=== PATIENT | female | born 1945 | race Caucasian/White ===

== ENCOUNTER 2016-09-24 00:34 | Emergency (ER) | payer OTHER ==
--- NOTE | 2016-09-24 02:58 | ED NURSING NOTES ---
Clinical Report - Nurses [facility] [place] [address] 09/24/2016 0:36 [id number] Triage time 00:30 Sep 24 2016. Acuity: LEVEL 3. Chief Complaint: DIFFICULTY BREATHING and "ASTHMA ATTACK". ( RT called to bedside). SEPSIS SCREEN: Sepsis Screen: negative. Negative (no infection suspected/documented). DARRION COMA SCORE: Darrion Coma Scale: 15- eyes open spontaneously (4); best verbal response- oriented x 4 (5); best motor response- obeys commands (6). --00:42 Janis Martinez 00:38 09/24/16. BP: 158/78. HR: 81. RR: 24. O2 saturation: 93% on room air. Temp: 98 F (oral). Pain level now: 0/10. --00:42 Janis Martinez. Weight: 72.5 kg stated. Height/Length: 65 inches Per Patient. BMI: 26.6. --00:40 Janis Martinez. Medications Albuterol Sulfate Oral. --00:39 Janis Martinez Primatene Asthma Oral. --00:40 Janis Martinez Decongestant Oral. --00:40 Janis Martinez. Medication/allergy information source: the patient. --00:42 Janis Martinez. Allergies Penicillin. --00:40 Janis Martinez. History Arrived by private vehicle. Historian: patient. Accompanied by family. Primary physician (From out of state). This started last night. ( Patient reports she began having shortness of breath last night. She reports asthma and states she has been using her medications without relief. Family reports patient may be coughing up blood. Family reports patient has been hiding that from them.). She has had a cough and wheezing. PAST MEDICAL HX: Immunizations: up-to-date. The patient is post-menopausal. SOCIAL HX: Heavy tobacco smoker- 1 pack per day. No alcohol use or drug use. No infectious disease exposure. ABUSE ASSESSMENT: No report of abuse. FALL RISK ASSESSMENT: Fall risk assessment completed. No fall risk identified. NUTRITIONAL RISK ASSESSMENT: The nutritional risk assessment revealed no deficiencies. FUNCTIONAL ASSESSMENT: Functional assessment: no impairments noted. LEARNING NEEDS ASSESSMENT: The learning needs assessment revealed no barriers. SKIN INTEGRITY ASSESSMENT: Skin integrity risk assessment completed. No skin integrity risk identified. --00:42 Janis Martinez. PROBLEMS: Asthma. --00:40 Janis Martinez. ADDITIONAL SURGERIES: Colostomy. --00:40 Janis Martinez. Interventions ID band on patient. To treatment room. --00:42 Janis Martinez. PHYSICAL ASSESSMENT GENERAL / NEURO / PSYCH: Alert. Oriented X 4. She appears uncomfortable. HEENT: Mucous membranes are pink. RESPIRATORY: Mild respiratory distress. The patient can speak in full sentences. Cough productive of moderate amounts of yellow sputum. Expiratory wheezes present; wheezes audible without auscultation. CVS: Normal sinus rhythm noted. SKIN: Skin is warm and dry. --00:42 Janis Martinez. NURSING PROGRESS NOTES Oxygen administered by nasal cannula at 2 liters. mushroom spawn maker, pulse oximeter and NIBP monitor placed on patient; monitor alarms on. Patient gowned. Head of bed elevated. Reassurance given to the patient and patient's family. Two patient identifiers checked. Call light placed in reach. Side rails up x 1. Bed placed in lowest position. Brakes of bed on. Patient ready for evaluation- chart flagged and ED physician notified. --00:43 Janis Martinez 01:15 09/24/16. BP: 132/71. HR: 82. RR: 20. O2 saturation: 100% on nasal cannula at 2 liters/minute. --01:28 Janis Martinez Reassessment after medication administered. Overall patient status- she states feels better. --01:28 Janis Martinez 01:43 09/24/2016 Site #1 started via IV in the left antecubital space with an 20g angiocath, with aseptic technique and good blood return; one attempt. Held. Saline lock flushed with 10 mL saline. --01:48 Janis Martinez 01:48 09/24/2016 SOLU-MEDROL (MethylPREDNISolone Sodium Succ) IVP 125 mg given over 2 minute(s) via site #1. Allergies verified and confirmed 5 rights. IV patency established. IV site checked: no pain, redness, or swelling. IV flushed thoroughly pre- and post-medication administration. IVP given by RN. --01:48 Janis Martinez ( RT at bedside). --01:50 Janis Martinez Patient transported to radiology by stretcher with tech. (01:59 Sep 24 2016). --01:59 Janis Martinez 02:24 09/24/16. BP: 135/80. HR: 79. RR: 20. O2 saturation: 93% on nasal cannula at 2 liters/minute. --02:26 Janis Martinez. DISPOSITION / DISCHARGE 03:09 09/24/16. BP: 140/79. HR: 83. RR: 20. O2 saturation: 94% on room air. Temp: 98 F (oral). Pain level now: 0/10. --03:12 Janis Martinez 03:07 09/24/2016 Site #1 removed upon discharge. Catheter intact. Bandaid applied. --03:12 Janis Martinez 03:12 09/24/16. Condition at departure: improved and stable. The goals identified in the patient's plan of care were met. No learning barriers present. Discharge instructions provided and reviewed with the patient and family. Reviewed medication(s) side effects, precautions, dosing and course information. Prescription(s) given to the patient. Reviewed turn, cough, and deep breath exercise instructions. Reviewed need for increased fluid intake. Patient verbalized understanding. Written instructions provided in Luxembourgish. ( Follow up with your doctor for next available appointment. Return if your symptoms do not improve with medications. Patient and family verbalized understanding and had no additional questions at this time.). The patient was discharged by the physician. She was discharged home and accompanied by family. She left the Emergency Department ambulatory and via private vehicle. Family member driving. FALL RISK ASSESSMENT: Fall risk assessment completed. No fall risk identified. --03:12 Janis Martinez. Locked/Released at 09/24/2016 3:13 by Janis Martinez,
--- NOTE | 2016-09-24 02:58 | ED CLINICAL REPORT ---
Clinical Report - Physicians/Mid Levels [facility] [address] [place] [address] 09/24/2016 0:36 [id number] Time Seen: 00:47. Arrived- By private vehicle. Historian- patient. HISTORY OF PRESENT ILLNESS Chief Complaint: DYSPNEA and HISTORY OF ASTHMA. This started yesterday and is still present. The dyspnea is described as moderate. The dyspnea is worsened by walking, exertion and cough (Nothing improves). The patient has had a moderate cough productive of scant amounts of white sputum. No fever, sweating episodes, chills or chest pain or discomfort. No calf pain, foot swelling, anxiety, dizziness or tingling. No numbness or palpitations. The patient has had wheezing and dyspnea on exertion. (Patient states she is here from [place], visiting family. She states that she began to feel short of breath last night and had a cough, but that tonight her symptoms got much worse. Patient denies recent illness. She states that prior to yesterday she was feeling fine. She denies any chest pain nausea, or abdominal pain. She does not have any heart problems that she knows of. No fevers.). Similar symptoms previously: Recent medical care: Not recently seen/assessed. REVIEW OF SYSTEMS The patient has not had weight loss. No muscle aches, eye irritation, sore throat, nasal discharge or sinus drainage. No nausea, vomiting, abdominal pain, diarrhea or black stools. No bloody stools, headache, fainting episodes, blurred vision or difficulty with urination. No skin rash, enlarged lymph nodes or joint pain. All systems otherwise negative, except as recorded above. PAST HISTORY Problems: Asthma. Additional Surgeries: Colostomy. Medications: Decongestant Oral. Primatene Asthma Oral. Albuterol Sulfate Oral. Allergies: Penicillin. SOCIAL HISTORY Smoker- current status unknown. ADDITIONAL NOTES The nursing notes have been reviewed. PHYSICAL EXAM Vital Signs: 09/24/2016 00:38 BP: 158/78. HR: 81. RR: 24. O2 saturation: 93%. Temp: 98 F. Pain level now: 0/10. Have been reviewed. Appearance: Alert. Patient in mild distress. Distress appears respiratory. Eyes: Pupils equal, round and reactive to light. Eyes normal inspection. ENT: Nose normal. Neck: Normal inspection. CVS: Normal heart rate and rhythm. Heart sounds normal. Pulses normal. Respiratory: Mild respiratory distress with accessory muscle use and tachypnea. Mildly prolonged expirations. Moderately decreased air movement diffusely over both lungs. Expiratory moderate bilateral wheezes diffusely. Moderate bilateral rhonchi present diffusely. Abdomen: Soft and nontender. Back: Normal inspection. No CVA tenderness. Skin: Skin warm and dry. Normal skin color. No rash. Normal skin turgor. Extremities: Extremities exhibit normal ROM. No lower extremity edema. Neuro: (Grossly intact.). LABS, X-RAYS, AND EKG Chest X-ray: No acute disease. Normal lung markings present. Normal heart size. Mediastinum normal. Great vessels normal. Soft tissues normal. No infiltrate. No fracture. No bony lesion present. Views: PA and lateral. Technique: good. The X-rays were independently viewed by me and interpreted contemporaneously by me. Prior films were not available for comparison. Pulse Oximetry: 09/24/2016 00:38 O2 saturation: 93%. (FIO2 - room air). Interpretation: normal. PROGRESS AND PROCEDURES Course of Care: patient was treated symptomatically with a DuoNeb initially, which did improve her symptoms. She was also given IV Solu-Medrol and a second DuoNeb, after she continued to have significant wheezing and rhonchi after the initial treatment. Patient was also worked up with a chest x-ray, which was unremarkable. On reevaluation patient was found to be feeling better, and stated she was ready for discharge. Patient and family counseled in person regarding the patient's stable condition, test results, diagnosis and need for follow-up. Concerns were addressed. Disposition: Discharged. Condition: stable and improved. CLINICAL IMPRESSION Mild persistent asthma with an acute exacerbation. No pneumonia. INSTRUCTIONS (Your chest x-ray looks good.). Warnings: GENERAL WARNINGS: Return or contact your physician immediately if your condition worsens or changes unexpectedly, if not improving as expected, or if other problems arise. Your Current Medications: CONTINUE TAKING THE FOLLOWING MEDICATIONS: Albuterol Sulfate Oral. Decongestant Oral. Primatene Asthma Oral. Prescription Medications: Prednisone 20 mg: take 3 orally every day for 5 days. Dispense sufficient quantity. No refills. Follow-up: Follow up with your doctor. Call for the next available appointment. Understanding of the discharge instructions verbalized by patient and family. (Electronically signed by Yessica Zurita MD 09/24/2016 3:17)
--- NOTE | 2016-09-24 02:58 | ED ORDER SUMMARY ---
..... Patient: FRENCH YOUNG OrderSheet [facility] VisitID: [id number] [address] [place] [address] 70y, F Registration Date/Time: 09/24/2016 ORDER SHEET Weight: 72.5 kg (stated) Allergies: Penicillin GENERAL ORDERS: Chest 2V Urgent (01:41 09/24/2016 Trinity BLANCO) (Ack 1:43 ALawrence ER Tech1) (2:00 GUnger) MEDICATION ORDERS: DuoNeb Neb Tx 1 unit dose (NOW) (00:48 09/24/2016 HSoule verbal order read back to Trinity BLANCO) (0:55 ASingh) DuoNeb Neb Tx 1 unit dose (NOW) (01:40 09/24/2016 Trinity BLANCO) (1:44 ASingh) IV FLUIDS: Solu-MEDROL IV 125 mg (NOW) (01:40 09/24/2016 Trinity BLANCO) (1:48 HSoule) IV Saline Lock (01:41 09/24/2016 Trinity BLANCO) (1:48 HSoule) ORDER SHEET NOTES: [Electronically signed by Janis Martinez (03:13 09/24/2016)] [Electronically signed by Yessica Zurita MD (03:17 09/24/2016)] [Electronically locked/signed by Janis Martinez (03:13 09/24/2016)]
--- NOTE | 2016-09-24 02:58 | ED ORDER SUMMARY ---
..... Patient: FRENCH YOUNG OrderSheet [facility] VisitID: [id number] [address] [place] [address] 70y, F Registration Date/Time: 09/24/2016 ORDER SHEET Weight: 72.5 kg (stated) Allergies: Penicillin GENERAL ORDERS: Chest 2V Urgent (01:41 09/24/2016 Trinity BLANCO) (Ack 1:43 ALawrence ER Tech1) (2:00 GUnger) MEDICATION ORDERS: DuoNeb Neb Tx 1 unit dose (NOW) (00:48 09/24/2016 HSoule verbal order read back to Trinity BLANCO) (0:55 ASingh) DuoNeb Neb Tx 1 unit dose (NOW) (01:40 09/24/2016 Trinity BLANCO) (1:44 ASingh) IV FLUIDS: Solu-MEDROL IV 125 mg (NOW) (01:40 09/24/2016 Trinity BLANCO) (1:48 HSoule) IV Saline Lock (01:41 09/24/2016 Trinity BLANCO) (1:48 HSoule) ORDER SHEET NOTES: [Electronically signed by Janis Martinez (03:13 09/24/2016)] [Electronically signed by Yessica Zurita MD (03:17 09/24/2016)] [Electronically locked/signed by Janis Martinez (03:13 09/24/2016)]
--- NOTE | 2016-09-24 03:17 | ED DISCHARGE INSTRUCTIONS ---
Patient: FRENCH YOUNG General Instructions [facility] VisitID: [id number] [place] [address] 70y, F Registration Date/Time: 09/24/2016 Mild persistent asthma with an acute exacerbation. No pneumonia. INSTRUCTIONS (Your chest x-ray looks good.). Warnings: GENERAL WARNINGS: Return or contact your physician immediately if your condition worsens or changes unexpectedly, if not improving as expected, or if other problems arise. Your Current Medications: CONTINUE TAKING THE FOLLOWING MEDICATIONS: Albuterol Sulfate Oral. Decongestant Oral. Primatene Asthma Oral. Prescription Medications: Prednisone 20 mg: take 3 orally every day for 5 days. Dispense sufficient quantity. No refills. Follow-up: Follow up with your doctor. Call for the next available appointment. Understanding of the discharge instructions verbalized by patient and family. ADDITIONAL INFORMATION Asthma [Adult] Asthma is a disease where the small air passages within the lung go into spasm and restrict the flow of air. Inflammation and swelling of the airways cause further restriction. During an acute asthma attack, these factors cause difficulty breathing, wheezing, cough and chest tightness. An asthma attack can be triggered by many things. Common triggers include the common cold, bronchitis, pneumonia, irritants such as smoke or pullutants in the air, emotional upset and heavy exercise. Inmany adults with asthma, allergies todust, mold, pollen and animal dander can cause an asthma attack. Skipping doses of daily asthma medicine can also bring on an asthma attack. Asthma can be controlled with proper medicines and decreased exposure to known allergens. Home Care: Take prescribed medicine exactly at the times advised. If you have a hand-held inhaler or aerosol breathing medicine, do not use it more than once every four hours, unless told to do so. (If you need this medicine more than every four hours, you may need to return to the Emergency Room.) If prescribed an antibiotic or prednisone, take all of the medicine even if you are feeling better after a few days. Do not smoke. Avoid being exposed to the smoke of others. Some persons with asthma have worsening of their symptoms when they take aspirin and non-steroidal medicines like ibuprofen (Motrin, Advil) and naproxen (Aleve, Naprosyn). Talk to your doctor if you think this may apply to you. Acetaminophen (Tylenol)should be safe to use. Follow Up with your doctor, or as advised by our staff. Always bring all of your current medicines with you for your doctor to see. If you do not already have one, talk to your doctor about developing a personalized "Asthma Action Plan." [NOTE: A pneumococcal vaccine and yearly flu shot (every fall) are recommended. Ask your doctor about this.] Get Prompt Medical Attention if any of the following occur: Increased wheezing or shortness of breath Need to use your inhalers more often than usual without relief Fever of 100.4F (38C) or higher, or as directed by your healthcare provider Coughing up lots of dark-colored or bloody sputum (mucus) Chest pain with each breath You do not start to improve within 24 hours Call 911 If Any Of The Following Occur : Trouble walking or talking because of shortness of breath If you use a peak flow meter andyou are still in the red zone (less than 50 percent) 15 minutes after using inhaler medication Lips or fingernails turning green or blue You have been given the following additional information: Asthma, Acute (Adult) (Electronically signed by Yessica Zurita MD 09/24/2016 3:17)
--- NOTE | 2016-09-24 03:17 | ED MAR SUMMARY ---
..... Medication Administration Record [facility] [address] [place] [address] Patient: FRENCH YOUNG Visit ID: [id number] 70y, F Weight: 72.5 kg Height/Length: 65 in BMI: 26.6 ALLERGIES: Penicillin Given 00:40 09/24/2016 Félix Rosario, Medication Administered: DUONEB [NEB TX] (IPRATROPIUM-ALBUTEROL), Dose: 1 unit dose Nebulizer Neb TX. Medication Ordered: DuoNeb Neb Tx 1 unit dose (NOW). Given 01:44 09/24/2016 Félix Rosario, Medication Administered: DUONEB [NEB TX] (IPRATROPIUM-ALBUTEROL), Dose: 1 unit dose Nebulizer Neb TX. Medication Ordered: DuoNeb Neb Tx 1 unit dose (NOW). Given 01:48 09/24/2016 Janis Martinez, Medication Administered: SOLU-MEDROL [IVP] (METHYLPREDNISOLONE SODIUM SUCC), Dose: 125 mg IVP over 2 minute(s), Site: #1 left . Medication Ordered: Solu-MEDROL IV 125 mg (NOW).
--- NOTE | 2016-09-24 03:17 | ED MED RECONCILIATION SUMMARY ---
Patient: FRENCH YOUNG Medication Reconciliation Report [facility] VisitID: [id number] [address] [place] [address] 70y, F Registration Date/Time: 09/24/2016 Weight: 72.5 kg Height/Length: 65 in. BMI: 26.6 ALLERGIES: Penicillin The patient's Home Medications are listed below: CONTINUE TAKING THE FOLLOWING MEDICATIONS: Albuterol Sulfate Oral Decongestant Oral Primatene Asthma Oral The source(s) of the original Home Medication information: patient The following Medications were given to the patient in the Emergency Department: Duoneb [Neb Tx] Neb TX 1 unit dose, administered: 09/24/2016 12:40:00 AM Duoneb [Neb Tx] Neb TX 1 unit dose, administered: 09/24/2016 1:44:00 AM SOLU-MEDROL [IVP] IVP 125 mg, administered: 09/24/2016 1:48:00 AM The following Medications were prescribed to the patient: Prednisone 20 mg: take 3 orally every day for 5 days. Dispense sufficient quantity. No refills. -- Yessica Zurita MD
--- NOTE | 2016-09-24 03:17 | ED MAR SUMMARY ---
..... Medication Administration Record [facility] [address] [place] [address] Patient: FRENCH YOUNG Visit ID: [id number] 70y, F Weight: 72.5 kg Height/Length: 65 in BMI: 26.6 ALLERGIES: Penicillin Given 00:40 09/24/2016 Félix Rosario, Medication Administered: DUONEB [NEB TX] (IPRATROPIUM-ALBUTEROL), Dose: 1 unit dose Nebulizer Neb TX. Medication Ordered: DuoNeb Neb Tx 1 unit dose (NOW). Given 01:44 09/24/2016 Félix Rosario, Medication Administered: DUONEB [NEB TX] (IPRATROPIUM-ALBUTEROL), Dose: 1 unit dose Nebulizer Neb TX. Medication Ordered: DuoNeb Neb Tx 1 unit dose (NOW). Given 01:48 09/24/2016 Janis Martinez, Medication Administered: SOLU-MEDROL [IVP] (METHYLPREDNISOLONE SODIUM SUCC), Dose: 125 mg IVP over 2 minute(s), Site: #1 left . Medication Ordered: Solu-MEDROL IV 125 mg (NOW).
--- NOTE | 2016-09-24 03:17 | ED MED RECONCILIATION SUMMARY ---
Patient: FRENCH YOUNG Medication Reconciliation Report [facility] VisitID: [id number] [address] [place] [address] 70y, F Registration Date/Time: 09/24/2016 Weight: 72.5 kg Height/Length: 65 in. BMI: 26.6 ALLERGIES: Penicillin The patient's Home Medications are listed below: CONTINUE TAKING THE FOLLOWING MEDICATIONS: Albuterol Sulfate Oral Decongestant Oral Primatene Asthma Oral The source(s) of the original Home Medication information: patient The following Medications were given to the patient in the Emergency Department: Duoneb [Neb Tx] Neb TX 1 unit dose, administered: 09/24/2016 12:40:00 AM Duoneb [Neb Tx] Neb TX 1 unit dose, administered: 09/24/2016 1:44:00 AM SOLU-MEDROL [IVP] IVP 125 mg, administered: 09/24/2016 1:48:00 AM The following Medications were prescribed to the patient: Prednisone 20 mg: take 3 orally every day for 5 days. Dispense sufficient quantity. No refills. -- Yessica Zurita MD
--- NOTE | 2016-09-24 07:57 | DIAGNOSTIC IMAGING REPORT ---
PROCEDURE: XR CHEST 2 VIEW INDICATION: SHORTNESS OF BREATH TECHNIQUE: PA and lateral view. COMPARISON: None. FINDINGS: Lungs are clear. Bilateral pericardial fat pads. Cardiovascular structures are normal. Mildly tortuous aorta. Bilateral breast implants with capsular dystrophic calcifications. Bony thorax is unremarkable. IMPRESSION: 1. No acute changes.
== END 2016-09-24 03:10 | disposition home or self-care (01) ==
LOC: ED SRH 00:34
DX: J45.31 Mild persistent asthma with (acute) exacerbation (principal); Z79.899 Other long term (current) drug therapy; Z88.0 Allergy status to penicillin